=== PATIENT | male | born 1985 | race Caucasian/White ===

== ENCOUNTER 2020-12-04 13:54 | Observation (INO) | payer OTHER ==
[~2020-12-04] VITALS: Ht 177.8 cm; Wt 97.5 kg
[~2020-12-04 13:54] MED LIST: AMOX500 PO; CRUTCH3 USE; CYCL10 PO; HYDACE5 PO; HYDHCL25 PO; Keflex500 MG PO; NAPR500 PO; OXYACE5T PO; PENVK500 PO; PRED10 PO; PRED20 PO; TRIA15CR3 TOP; [UNRECOGNIZED DRUG - CODE] TOP
[2020-12-04 16:08] LABS: BASOPHILS ABSOLUTE AUTO 0.06 K/mm3 (0.00-0.23); BASOPHILS PERCENT AUTO 1 % (0-2); EOSINOPHILS ABSOLUTE AUTO 0.27 K/mm3 (0.00-0.68); EOSINOPHILS PERCENT AUTO 3 % (0-6); Hematocrit 35.3 % (37.0-53.0); Hemoglobin 11.5 g/dL (13.5-17.5); IMMATURE GRAN ABSOLUTE AUTO 0.03 K/mm3 (0.00-0.10); IMMATURE GRAN PERCENT AUTO 0 % (0-1); LYMPHOCYTES ABSOLUTE AUTO 3.35 K/mm3 (0.84-5.20); LYMPHOCYTES PERCENT AUTO 39 % (21-46); MONOCYTES ABSOLUTE AUTO 0.67 K/mm3 (0.16-1.47); MONOCYTES PERCENT AUTO 8 % (4-13); Mean Corpuscular HGB 27.1 pg (26.0-34.0); Mean Corpuscular HGB Conc 32.6 g/dL (31.5-36.5); Mean Corpuscular Volume 83 fL (80-100); Mean Platelet Volume 10.6 fL (9.1-12.4); NEUTROPHILS ABSOLUTE AUTO 4.26 K/mm3 (1.96-9.15); NEUTROPHILS PERCENT AUTO 49 % (41-73); Platelet Count 257 K/mm3 (150-400); RDW Coefficient Variation 13.8 % (11.7-14.2); RDW Standard Deviation 41.4 fL (35.1-46.3); Red Blood Cell Count 4.25 M/mm3 (4.30-5.90); White Blood Cell Count 8.64 K/mm3 (4.00-11.30)
[2020-12-04 16:20] LABS: Alanine Aminotransfer (ALT/SGP 28 U/L (12-78); Albumin, Blood 3.4 g/dL (3.4-5.0); Albumin/Globulin Ratio 0.8 (0.8-1.8); Alk Phos 110 U/L (50-136); Anion Gap 5 mmol/L (6-16); Aspartate Aminotrans (AST/SGOT 22 U/L (12-37); Bilirubin, Total 0.4 mg/dL (0.1-1.0); Blood Urea Nitrogen 13 mg/dL (8-24); Bun/Creatinine Ratio 17.4 (12.0-20.0); CO2, Blood 24 mmol/L (21-32); Calcium, Blood 8.5 mg/dL (8.5-10.1); Chloride, Blood 109 mmol/L (98-108); Creatinine, Blood 0.75 mg/dL (0.60-1.20); Globulin, Blood 4.4 g/dL (2.2-4.0); Glomerular Filtration Rate >60 (60-); Glucose, Blood 102 mg/dL (70-99); Potassium, Blood 3.6 mmol/L (3.5-5.5); Sodium, Blood 138 mmol/L (136-145); Total Protein, Blood 7.8 g/dL (6.4-8.2)
[2020-12-04 18:00] LABS: CPK Creatine Kinase 278 U/L (39-308); Ethanol (Alcohol), Blood, Med <3 mg/dL
--- NOTE | 2020-12-04 19:32 | NUR ---
PATIENT ARRIVED TO UNIT FROM ED VIA GURNEY AT 1715, TRANSFERED TO BED BY STAFF. PATIENT APPEARED LETHARGIC, WOULD ANSWER QUESTIONS APPROPRIATELY AFTER SEVERAL PROMPTS. VSS, O2 SATURATION IN HIGH 90S ON ROOM AIR. PATIENT WAS TOO LETHARGIC TO COMPLETE ADMISSION HISTORY, SCREENING AND MEDICATION LIST. AROUND 1730 PATIENT CALLED THIS RN INTO ROOM, APPEARED ALERT, AND TOLD THIS RN THAT HE WAS LEAVING. THIS RN REMINDED PATIENT OF THE DANGERS OF A HEROIN OVERDOSE, RISK FOR RESPIRATORY DEPRESSION, HYPOXIA AND . PATIENT ENDORSED UNDERSTANDING BUT STATED THAT HE NEEDED "TO LEAVE TO USE HEROIN" OR HE WOULD "START WITHDRAWING AND FEEL LIKE CRAP". THIS RN AGAIN INFORMED PATIENT THAT THE [facility] WAS FOLLOWING HIS CASE AND THAT THE DRShanice WANTED TO MONITOR HIM FOR THE HEROIN OVERDOSE FOR THE NEXT [address] DIETRICH. PATIENT AGAIN STATED THAT HE WAS GOING TO LEAVE AGAINST MEDICAL ADVICE. DR. DEITRICH NOTIFIED. AMA PAPERWORK SIGNED BY PT, PLACED ON PT CHART. PATIENT ESCORTED BY THIS RN TO ED AND COORDINATED RETURN OF PERSONAL BELONGINGS BEING HELD BY SECURITY DEPARTMENT. BELONGINGS RETURNED, PATIENT LEFT VIA AMBULATION.
== END 2020-12-04 18:09 | disposition left against medical advice (07) ==
LOC: ER 13:54 → PCU 16:22
PROVIDERS: ADMIT Internal Medicine
DX: T40.1X1A Poisoning by heroin, accidental (unintentional), initial encounter (principal); F19.10 Other psychoactive substance abuse, uncomplicated; F17.210 Nicotine dependence, cigarettes, uncomplicated; Z97.8 Presence of other specified devices; Z88.5 Allergy status to narcotic agent
CPT/HCPCS: 80053; 82550; 85025; 99284; A9270; G0378; G0480